=== PATIENT | female | born 1985 | race Caucasian/White ===

== ENCOUNTER 2017-10-31 14:22 | Emergency (ER) | payer BC, OTHER ==
[~2017-10-31] VITALS: Ht 165.1 cm; Wt 118.4 kg
[~2017-10-31 14:22] MED LIST: ADDERALL XR 2020 MG PO; AMPHETAMINE SAL20 MG PO; BENTYL10 MG PO; BIRTH CONTROL PILLS; FLUOXETINE; FLUVOXAMINE MA100 MG PO; LEVONORG-ETH E1 EACH PO; LORCET 10-6501 EAC1; PROVENTIL HFA6.7 GM INH; SEASONIQUE; TRAZODONE PO; VICODIN ES TAB1 EACH PO; Z.0.ADIPEX-P37.5 MG; Z.0.LEVAQUIN500 MG; Z.0.LYRICA75 MG; Z.0.SOMA350 MG PO; Z.0.XANAX1 MG PO; ZOFRAN ODT4 MG PO
[2017-10-31] MEDS ORDERED: LORAZEPAM INJ 2 MG/ML VIAL IV ONE (15:00)
[2017-10-31] MEDS ORDERED: KETOROLAC TROMETHAMINE 30 MG/ML VIAL IV STA (15:29)
[2017-10-31] MEDS ORDERED: AZITHROMYCIN 250 MG TAB PO STA (15:29)
[2017-10-31] MEDS ORDERED: METRONIDAZOLE 250 MG TAB PO ONE (15:30)
[2017-10-31] MEDS ORDERED: CEFTRIAXONE SOD 250 MG VIAL IV ONE (15:30)
[2017-10-31] MEDS ORDERED: METRONIDAZOLE 500 MG TAB PO NR (15:45)
[2017-10-31 16:24] LABS: BASOPHILS % 0.5 % (0.0-1.0); EOSINOPHILS # (AUTO) 0.1 (0.0-0.4); EOSINOPHILS % 0.8 % (0.0-6.0); HEMATOCRIT 40.4 % (34.2-44.1); HEMOGLOBIN 13.2 g/dL (12.0-16.0); LYMPHOCYTES # (AUTO) 2.7 (1.0-3.2); LYMPHOCYTES % 36.1 % (18.0-39.1); MEAN CORPUSCULAR HEMOGLOBIN 29.8 pg (28-32); MEAN CORPUSCULAR HGB CONC 32.7 g/dL (31-35); MEAN CORPUSCULAR VOLUME 91.2 fL (81-99); MONOCYTES # (AUTO) 0.5 (0.2-0.8); MONOCYTES % 6.1 % (4.4-11.3); NEUTROPHILS # (AUTO) 4.2 (2.1-6.9); NEUTROPHILS % 56.2 % (38.7-80.0); PLATELET COUNT 260 x10e3/uL (140-360); RED BLOOD COUNT 4.43 x10e6/uL (3.6-5.1); RED CELL DISTRIBUTION WIDTH 16.2 % (11.7-14.4)
[2017-10-31 16:32] LABS: ANION GAP 13.8 mmol/L (8-16); BLOOD UREA NITROGEN 15 mg/dL (7-26); BUN/CREATININE RATIO 21 (6-25); CALCIUM 9.2 mg/dL (8.4-10.2); CARBON DIOXIDE 23 mmol/L (22-29); CHLORIDE 103 mmol/L (98-107); EST GLOMERULAR FILTRATION RATE > 60 ML/MIN (60-); GLUCOSE 88 mg/dL (74-118); POTASSIUM 3.8 mmol/L (3.5-5.1); SODIUM 136 mmol/L (136-145)
[2017-10-31 16:39] LABS: HCG,QUANTITATIVE < 1.20 mIU/mL (0-10)
[2017-10-31] MEDS ORDERED: ONDANSETRON HCL INJ 2 MG/ML VIAL IV STA (17:25)
[2017-10-31 18:21] VITALS: BP 101/64
== END 2017-10-31 18:30 | disposition home or self-care (01) ==
LOC: ER 14:22
DX: R10.2 Pelvic and perineal pain (principal); N93.9 Abnormal uterine and vaginal bleeding, unspecified; N94.4 Primary dysmenorrhea
CPT/HCPCS: 36415; 80048; 84702; 85025; 87081; 87205; 96365; 96374; 99284; J0696; J1885; J2060; J2405